=== PATIENT | female | born 1985 | race American Indian/Alaskan Native ===

== ENCOUNTER 2017-12-08 09:12 | Inpatient (IN) | payer MEDICAID, SELFPAY ==
[2017-12-06 10:04] VITALS: BMI 24.7
--- NOTE | 2017-12-08 08:41 | CP.PCM.HP ---
History of Present Illness - History of Present Illness History of Present Illness: patient here for myomectomy due to enlarged uterus and pelvic pain Present on Admission - Present on Admission Any Indicators Present on Admission: No History of DVT/PE: No History of Uncontrolled Diabetes: No Urinary Catheter: No Decubitus Ulcer Present: No Review of Systems - Hematologic/Lymphatic Additional comments: wnl Past Patient History - Past Medical History & Family History Past Medical History?: No - Past Social History Smoking Status: Never Smoked - CARDIAC Hx Cardiac Disorders: No - PULMONARY Hx Respiratory Disorders: No - NEUROLOGICAL Hx Neurological Disorder: No - HEENT Hx HEENT Problems: No - RENAL Hx Chronic Kidney Disease: No - ENDOCRINE/METABOLIC Hx Endocrine Disorders: No - HEMATOLOGICAL/ONCOLOGICAL Hx Blood Disorders: No - INTEGUMENTARY Hx Dermatological Problems: No - MUSCULOSKELETAL/RHEUMATOLOGICAL Hx Musculoskeletal Disorders: No - GASTROINTESTINAL Hx Gastrointestinal Disorders: No - GENITOURINARY/GYNECOLOGICAL Hx Genitourinary Disorders: No - PSYCHIATRIC Hx Psychophysiologic Disorder: No - SURGICAL HISTORY Hx Surgeries: Yes Other/Comment: fibroids removed--2012 - ANESTHESIA Hx Anesthesia: Yes Hx Anesthesia Reactions: No Has any member of the family had a problem w/ anesthesia?: No Meds Allergies/Adverse Reactions: Allergies Allergy/AdvReac Type Severity Reaction Status Date / Time No Known Allergies Allergy Verified 12/06/17 09:41 Physical Exam - Skin Additional comments: enlarged fibroid uterus - Additional Findings Additional findings: enlarged uteru Results - Vital Signs Recent Vital Signs: Last Vital Signs Temp 99.6 F 12/06/17 10:00 Pulse 78 12/06/17 10:00 Resp 20 12/06/17 10:00 BP 101/72 12/06/17 10:00 Pulse Ox 98 12/06/17 10:00 Assessment & Plan - Assessment and Plan (Free Text) Assessment: fibroi uterus pelvic pain Plan: admit for myomectomy - Date & Time Date: 12/08/17 Time: 08:45
[2017-12-08] MEDS ORDERED: Propofol 10 mg/ml Inj (20 ML) ONE (11:48)
[2017-12-08] MEDS ORDERED: ePHEDrine 50 mg/ml Inj ONE (11:48)
[2017-12-08] MEDS ORDERED: Midazolam 2 MG/2 ML VIAL ONE (11:48)
[2017-12-08] MEDS ORDERED: cefOXitin IV 1 gm in Dextrose 2 GM/100 ML BAG IVPB ONE (11:51)
[2017-12-08] MEDS ORDERED: Rocuronium 10 mg/ml (5 ml) ONE (11:59)
[2017-12-08] MEDS ORDERED: Esmolol 100 mg/10ml Inj IV ONE (11:59)
[2017-12-08] MEDS ORDERED: Lactated Ringer's 1,000 ML IV ONE ×2 (12:09→13:37)
[2017-12-08] MEDS ORDERED: Sodium Chloride 0.9% 1,000 ML IV ONE ×2 (12:10→17:35)
[2017-12-08] MEDS ORDERED: Morphine 1 mg/ml preservative-free Inj(Duramorph) ONE (12:34)
[2017-12-08] MEDS ORDERED: Sevoflurane - Inhalation Anesthetic Liq (250 ml) ONE (13:02)
[2017-12-08] MEDS ORDERED: Sodium Chloride 0.9% 500 ML IV ONE ×4 (13:37→14:53)
[2017-12-08] MEDS: Lactated Ringer's 1,000 ML IV ONE ×2 (14:23→21:25)
[2017-12-08] MEDS ORDERED: Lactated Ringer's 500 ML IV ONE ×2 (14:24→14:36)
[2017-12-08] MEDS ORDERED: Sodium Chloride 0.9% 250 ML IV ONE (14:24)
[2017-12-08] MEDS ORDERED: Neostigmine 1:1000 (1 mg/ml) Inj ONE (14:35)
[2017-12-08] MEDS ORDERED: Lactated Ringer's 1,000 ML IV SCH ×2 (15:45)
[2017-12-08] MEDS: HYDROmorphone 1 mg/ml ISec IVP PRN ×2 (16:17→17:15)
[2017-12-08] MEDS ORDERED: Lactated Ringer's 500 ML IV SCH (18:00)
[2017-12-08 18:21] LABS: HEMOGLOBIN 10.1 g/dL (12.0-16.0); MEAN CELL VOLUME 89.9 fl (81.0-99.0); MEAN CORPUSCULAR HEMOGLOBIN 29.3 pg (27.0-31.0); MEAN CORPUSCULAR HGB CONC 32.6 g/dL (33.0-37.0); RBC 3.45 Mil/uL (3.80-5.20); RED CELL DISTRIBUTION WIDTH 13.6 % (11.5-14.5); WHITE BLOOD COUNT 14.5 K/uL (4.8-10.8)
[2017-12-08] MEDS: cefOXitin 2 GM in Sodium Chloride 0.9% 100 ML IVPB SCH (19:45)
[2017-12-08 20:10] LABS: BASO % 0.1 % (0.0-2.0); HEMOGLOBIN 9.6 g/dL (12.0-16.0); LYMPH # 0.8 K/uL (1.0-4.3); LYMPH % 5.9 % (20.0-40.0); MEAN CELL VOLUME 90.3 fl (81.0-99.0); MEAN CORPUSCULAR HEMOGLOBIN 29.2 pg (27.0-31.0); MEAN CORPUSCULAR HGB CONC 32.4 g/dL (33.0-37.0); MEAN PLATELET VOLUME 9.6 fl (7.2-11.7); MONO # 1.1 K/uL (0.0-0.8); MONO % 8.3 % (0.0-10.0); NEUT # 11.8 K/uL (1.8-7.0); NEUT % 85.7 % (50.0-75.0); PLATELET COUNT 149 K/uL (130-400); RBC 3.29 Mil/uL (3.80-5.20); RED CELL DISTRIBUTION WIDTH 13.8 % (11.5-14.5); WHITE BLOOD COUNT 13.7 K/uL (4.8-10.8)
[2017-12-08] MEDS: Lactated Ringer's 1,000 ML IV SCH ×3 (20:55→22:56)
[2017-12-08 21:44] LABS: BANDS 4 % (0-2); LYMPHOCYTE 6 % (20-50); MONOCYTE 1 % (0-10); NEUTROPHIL 88 % (42-75); REACTIVE LYMPHOCYTES 1 % (0-0); TOTAL CELLS COUNTED 100
[2017-12-08 21:45] LABS: PLATELET ESTIMATE NORMAL (NORMAL)
[2017-12-08 21:46] LABS: ACANTHOCYTES SLIGHT
--- NOTE | 2017-12-08 22:06 | CP.PCM.CON ---
History of Present Illness - History of Present Illness History of Present Illness: CC: Hypotension This is a 31 year old female who went for myomectomy due to enlarged uterus and pelvic pain earlier today. During the patient's surgery today she had 1400 mL of estimated blood loss. In the PACU I was called for consultation due to postoperative hypovolemic hypotension as a result. The patient was found to be 83/42 despite 4 liters of IV fluids in the OR, but is now responding to fluids with a BP of 100/62. There is no baseline Hg available to me at this time; her postop Hg is 9.6. She is being admitted to ICU for close monitoring overnight due to her hypotension. Patient is refusing blood transfusion at this time. Patient is c/o pain and is requesting pain medication. She is responding appropriately to questions. Review of Systems - Review of Systems Review of Systems: A 12 point review of system was conducted and found to be negative other than what was mentioned in HPI. Past Patient History - Infectious Disease Hx of Infectious Diseases: None - Past Medical History & Family History Past Medical History?: No Past Family History: Reviewed and not pertinent - Past Social History Smoking Status: Never Smoked Alcohol: None Drugs: Denies - CARDIAC Hx Cardiac Disorders: No - PULMONARY Hx Respiratory Disorders: No - NEUROLOGICAL Hx Neurological Disorder: No - HEENT Hx HEENT Problems: No - RENAL Hx Chronic Kidney Disease: No - ENDOCRINE/METABOLIC Hx Endocrine Disorders: No - HEMATOLOGICAL/ONCOLOGICAL Hx Blood Disorders: No - INTEGUMENTARY Hx Dermatological Problems: No - MUSCULOSKELETAL/RHEUMATOLOGICAL Hx Musculoskeletal Disorders: No - GASTROINTESTINAL Hx Gastrointestinal Disorders: No - GENITOURINARY/GYNECOLOGICAL Hx Genitourinary Disorders: No - PSYCHIATRIC Hx Psychophysiologic Disorder: No Hx Emotional Abuse: No Hx Physical Abuse: No - SURGICAL HISTORY Hx Surgeries: Yes Other/Comment: fibroids removed--2012 - ANESTHESIA Hx Anesthesia: Yes Hx Anesthesia Reactions: No Hx Malignant Hyperthermia: No Has any member of the family had a problem w/ anesthesia?: No Meds Allergies/Adverse Reactions: Allergies Allergy/AdvReac Type Severity Reaction Status Date / Time No Known Allergies Allergy Verified 12/08/17 10:03 - Medications Medications: Current Medications Hydromorphone HCl (Dilaudid) 1 mg IVP Q3 PRN PRN Reason: Pain, moderate (4-7) Hydromorphone HCl (Dilaudid) 0.5 mg IVP Q3 PRN PRN Reason: Pain, Mild (1-3) Acetaminophen (Ofirmev) 100 mls @ 400 mls/hr IVPB Q6H KENDRA PRN Reason: Protocol Stop: 12/09/17 15:46 Last Admin: 12/08/17 21:59 Dose: Not Given Cefoxitin Sodium 2 gm/ Sodium (Chloride) 100 mls @ 100 mls/hr IVPB Q8 KENDRA PRN Reason: Protocol Stop: 12/09/17 01:59 Last Admin: 12/08/17 19:45 Dose: 100 mls Lactated Ringer's (Lactated Ringer's) 1,000 mls @ 999 mls/hr IV .Q1H1M [facility] Stop: 12/08/17 23:45 Last Admin: 12/08/17 20:55 Dose: 500 mls Ketorolac Tromethamine (Toradol) 15 mg IVP Q6 [facility] Stop: 12/09/17 16:01 Last Admin: 12/08/17 22:00 Dose: 15 mg Ondansetron HCl (Zofran Inj) 4 mg IVP Q4 PRN PRN Reason: Nausea/Vomiting Physical Exam - Additional Findings Additional findings: Physical exam: Constitutional- cooperative, drowsy postop but responding appropriately to questions Head- NCAT, PERRL Eye- PERRL, EOMI ENT- normal exam, MMM. Neck- normal inspection, supple, no JVD Respiratory- CTAB, no wheezes rales rhonchi Cardiovascular- RRR, +S1, +S2 no MRG GI/Abdominal- normal bowel sounds, soft, no mass, no hsm Skin- warm, dry, dressing c/d/i. Extremities Exam- normal capillary refill, normal inspection Neurological Exam- alert, awake, oriented Psych- normal mood, normal affect Results - Vital Signs Recent Vital Signs: Last Vital Signs Temp 99 F 12/08/17 21:25 Pulse 82 12/08/17 21:25 Resp 18 12/08/17 21:25 BP 105/61 12/08/17 21:25 Pulse Ox 100 12/08/17 21:25 - Labs Result Diagrams: 12/08/17 19:56 Labs: Laboratory Results - last 24 hr 12/08/17 12/08/17 12/08/17 18:01 19:56 20:30 WBC 14.5 H D 13.7 H RBC 3.45 L 3.29 L Hgb 10.1 L D 9.6 L Hct 31.0 L 29.7 L MCV 89.9 90.3 MCH 29.3 29.2 MCHC 32.6 L 32.4 L RDW 13.6 13.8 Plt Count 176 149 MPV 9.6 Neut % (Auto) 85.7 H Lymph % (Auto) 5.9 L [place] % (Auto) 8.3 Eos % (Auto) 0.0 Baso % (Auto) 0.1 Neut # (Auto) 11.8 H Lymph # (Auto) 0.8 L [place] # (Auto) 1.1 H Eos # (Auto) 0.0 Baso # (Auto) 0.0 Neutrophils % (Manual) 88 H Band Neutrophils % 4 H Lymphocytes % (Manual) 6 L Reactive Lymphs % 1 H Monocytes % (Manual) 1 Platelet Estimate Normal Acanthocytes (Spur) Slight Blood Type O POSITIVE Antibody Screen Negative Crossmatch See Detail BBK History Checked Patient has bt Assessment & Plan - Assessment and Plan (Free Text) Plan: This is a 31 year old female who went for myomectomy due to enlarged uterus and pelvic pain earlier today. During the patient's surgery today she had 1400 mL of estimated blood loss. In the PACU I was called for consultation due to postoperative hypovolemic hypotension as a result. The patient was found to be 83/42 despite 4 liters of IV fluids in the OR, but is now responding to fluids with a BP of 100/62. There is no baseline Hg available to me at this time; her postop Hg is 9.6. She is being admitted to ICU for close monitoring overnight due to her hypotension. Patient is refusing blood transfusion at this time. Patient is c/o pain and is requesting pain medication. She is responding appropriately to questions. 1) Postoperative hypotension secondary to blood loss - Admit to ICU - Continue aggressive hydration with LR - 2 more liters of LR and then will reassess, if BP continues to be stable will continue fluids at 125 cc/hour - Currently improved to 100/62 - Ofirmev and Toradol 15 mg IVP q 6 hours x 4 doses for pain control - If BP continues to be stable will advance pain medication to narcotics - Patient refusing blood products at this time - Other Postsurgical management as per primary 2) Leukocytosis, mild - reactive from surgery 3) DVT prophylaxis - SCDs
[2017-12-09] MEDS: cefOXitin 2 GM in Sodium Chloride 0.9% 100 ML IVPB SCH (03:18)
[2017-12-09] MEDS: Lactated Ringer's 1,000 ML IV SCH ×2 (08:21→14:47)
[2017-12-09 09:31] LABS: HEMOGLOBIN 8.5 g/dL (12.0-16.0); MEAN CELL VOLUME 88.7 fl (81.0-99.0); MEAN CORPUSCULAR HEMOGLOBIN 29.4 pg (27.0-31.0); MEAN CORPUSCULAR HGB CONC 33.2 g/dL (33.0-37.0); RBC 2.89 Mil/uL (3.80-5.20); RED CELL DISTRIBUTION WIDTH 13.7 % (11.5-14.5)
--- NOTE | 2017-12-09 10:17 | CP.PCM.PN ---
Subjective - Date & Time of Evaluation Date of Evaluation: 12/09/17 Time of Evaluation: 10:15 - Subjective Subjective: patient c/o incisional pain she wants to eat and walk Objective - Vital Signs/Intake and Output Vital Signs (last 24 hours): Temp Pulse Resp BP Pulse Ox 99.4 F 95 H 24 112/68 99 12/09/17 07:56 12/09/17 09:00 12/09/17 09:00 12/09/17 09:00 12/09/17 09:00 Intake and Output: 12/09/17 12/09/17 06:59 18:59 Intake Total 1450 100 Output Total 1000 Balance 450 100 - Medications Medications: Current Medications Hydromorphone HCl (Dilaudid) 1 mg IVP Q3 PRN PRN Reason: Pain, moderate (4-7) Last Admin: 12/09/17 09:34 Dose: 1 mg Hydromorphone HCl (Dilaudid) 0.5 mg IVP Q3 PRN PRN Reason: Pain, Mild (1-3) Acetaminophen (Ofirmev) 100 mls @ 400 mls/hr IVPB Q6H KENDRA PRN Reason: Protocol Stop: 12/09/17 15:46 Last Admin: 12/09/17 03:13 Dose: 400 mls/hr Lactated Ringer's (Lactated Ringer's) 1,000 mls @ 100 mls/hr IV .Q10H [facility] Last Admin: 12/09/17 08:21 Dose: 100 mls/hr Ketorolac Tromethamine (Toradol) 15 mg IVP Q6 KENDRA Stop: 12/09/17 16:01 Last Admin: 12/09/17 04:50 Dose: 15 mg Ondansetron HCl (Zofran Inj) 4 mg IVP Q4 PRN PRN Reason: Nausea/Vomiting - Labs Labs: 12/09/17 09:10
--- NOTE | 2017-12-09 10:22 | CP.PCM.PN ---
Subjective - Date & Time of Evaluation Date of Evaluation: 12/09/17 Time of Evaluation: 20:00 - Subjective Subjective: c/o incisional pain also wants to eat and walk around Objective - Vital Signs/Intake and Output Vital Signs (last 24 hours): Temp Pulse Resp BP Pulse Ox 99.4 F 95 H 24 112/68 99 12/09/17 07:56 12/09/17 09:00 12/09/17 09:00 12/09/17 09:00 12/09/17 09:00 Intake and Output: 12/09/17 12/09/17 06:59 18:59 Intake Total 1450 100 Output Total 1000 Balance 450 100 - Medications Medications: Current Medications Hydromorphone HCl (Dilaudid) 1 mg IVP Q3 PRN PRN Reason: Pain, moderate (4-7) Last Admin: 12/09/17 09:34 Dose: 1 mg Hydromorphone HCl (Dilaudid) 0.5 mg IVP Q3 PRN PRN Reason: Pain, Mild (1-3) Acetaminophen (Ofirmev) 100 mls @ 400 mls/hr IVPB Q6H KENDRA PRN Reason: Protocol Stop: 12/09/17 15:46 Last Admin: 12/09/17 03:13 Dose: 400 mls/hr Lactated Ringer's (Lactated Ringer's) 1,000 mls @ 100 mls/hr IV .Q10H [facility] Last Admin: 12/09/17 08:21 Dose: 100 mls/hr Ketorolac Tromethamine (Toradol) 15 mg IVP Q6 KENDRA Stop: 12/09/17 16:01 Last Admin: 12/09/17 04:50 Dose: 15 mg Ondansetron HCl (Zofran Inj) 4 mg IVP Q4 PRN PRN Reason: Nausea/Vomiting - Labs Labs: 12/09/17 09:10 - Eye Exam Additional comments: v.s stable afebrile incision clean and healing Assessment and Plan - Assessment and Plan (Free Text) Assessment: s/p myomectomy heavy blood loss Plan: continue present caredc dino arroyo with assistance increase diet as tolerated
--- NOTE | 2017-12-09 10:48 | CP.PCM.CON ---
History of Present Illness - History of Present Illness History of Present Illness: This is a 31 yrs old female who had a myomectomy for severe anemia due to abnormal uterine bleeding. Pt's Hgb was 10.4 when she came in. She had a myomectomy and several large fibroids were removed, Her Hgb post op has dropped to 8.5 gms and she was also very hypotensive,. She is better today but still feels weak. Past Patient History - Infectious Disease Hx of Infectious Diseases: None - Past Medical History & Family History Past Medical History?: No - Past Social History Smoking Status: Never Smoked - CARDIAC Hx Cardiac Disorders: No - PULMONARY Hx Respiratory Disorders: No - NEUROLOGICAL Hx Neurological Disorder: No - HEENT Hx HEENT Problems: No - RENAL Hx Chronic Kidney Disease: No - ENDOCRINE/METABOLIC Hx Endocrine Disorders: No - HEMATOLOGICAL/ONCOLOGICAL Hx Blood Disorders: No - INTEGUMENTARY Hx Dermatological Problems: No - MUSCULOSKELETAL/RHEUMATOLOGICAL Hx Falls: No - GASTROINTESTINAL Hx Gastrointestinal Disorders: No - GENITOURINARY/GYNECOLOGICAL Hx Genitourinary Disorders: No - PSYCHIATRIC Hx Substance Use: No - SURGICAL HISTORY Hx Surgeries: Yes Other/Comment: fibroids removed--2012 - ANESTHESIA Hx Anesthesia: Yes Hx Anesthesia Reactions: No Hx Malignant Hyperthermia: No Has any member of the family had a problem w/ anesthesia?: No Meds Allergies/Adverse Reactions: Allergies Allergy/AdvReac Type Severity Reaction Status Date / Time No Known Allergies Allergy Verified 12/08/17 10:03 - Medications Medications: Current Medications Hydromorphone HCl (Dilaudid) 1 mg IVP Q3 PRN PRN Reason: Pain, moderate (4-7) Last Admin: 12/09/17 09:34 Dose: 1 mg Hydromorphone HCl (Dilaudid) 0.5 mg IVP Q3 PRN PRN Reason: Pain, Mild (1-3) Acetaminophen (Ofirmev) 100 mls @ 400 mls/hr IVPB Q6H KENDRA PRN Reason: Protocol Stop: 12/09/17 15:46 Last Admin: 12/09/17 03:13 Dose: 400 mls/hr Lactated Ringer's (Lactated Ringer's) 1,000 mls @ 100 mls/hr IV .Q10H KENDRA Last Admin: 12/09/17 08:21 Dose: 100 mls/hr Ketorolac Tromethamine (Toradol) 15 mg IVP Q6 PRN PRN Reason: pain level 3-6 Ondansetron HCl (Zofran Inj) 4 mg IVP Q4 PRN PRN Reason: Nausea/Vomiting Physical Exam - Additional Findings Additional findings: Physical exam; Alert,well oriented in no acute distress.BP 105/60,hr 88/min neck; Supple, no adenopathy Chest; clear, no rales or rhonchi Heart; RSR, no murmur Abd; soft, no mass, no h/s megaly. Some tenderness in the lower part of the abdomen. Results - Vital Signs Recent Vital Signs: Last Vital Signs Temp 99.4 F 12/09/17 07:56 Pulse 78 12/09/17 10:00 Resp 16 12/09/17 10:00 BP 103/58 L 12/09/17 10:00 Pulse Ox 100 12/09/17 10:00 - Labs Result Diagrams: 12/09/17 09:10 Labs: Laboratory Results - last 24 hr 12/08/17 12/08/17 12/08/17 18:01 19:56 20:30 WBC 14.5 H D 13.7 H RBC 3.45 L 3.29 L Hgb 10.1 L D 9.6 L Hct 31.0 L 29.7 L MCV 89.9 90.3 MCH 29.3 29.2 MCHC 32.6 L 32.4 L RDW 13.6 13.8 Plt Count 176 149 MPV 9.6 Neut % (Auto) 85.7 H Lymph % (Auto) 5.9 L [place] % (Auto) 8.3 Eos % (Auto) 0.0 Baso % (Auto) 0.1 Neut # (Auto) 11.8 H Lymph # (Auto) 0.8 L [place] # (Auto) 1.1 H Eos # (Auto) 0.0 Baso # (Auto) 0.0 Neutrophils % (Manual) 88 H Band Neutrophils % 4 H Lymphocytes % (Manual) 6 L Reactive Lymphs % 1 H Monocytes % (Manual) 1 Platelet Estimate Normal Acanthocytes (Spur) Slight Blood Type O POSITIVE Antibody Screen Negative Crossmatch See Detail BBK History Checked Patient has bt 12/09/17 09:10 WBC 8.0 RBC 2.89 L Hgb 8.5 L Hct 25.7 L MCV 88.7 MCH 29.4 MCHC 33.2 RDW 13.7 Plt Count 122 L D MPV Neut % (Auto) Lymph % (Auto) [place] % (Auto) Eos % (Auto) Baso % (Auto) Neut # (Auto) Lymph # (Auto) [place] # (Auto) Eos # (Auto) Baso # (Auto) Neutrophils % (Manual) Band Neutrophils % Lymphocytes % (Manual) Reactive Lymphs % Monocytes % (Manual) Platelet Estimate Acanthocytes (Spur) Blood Type Antibody Screen Crossmatch BBK History Checked Assessment & Plan - Assessment and Plan (Free Text) Assessment: impression; Iron deficiency anemia secondary to abnormal uterine bleeding., Post op Plan: Plan; Will give her 2 days of iv iron, 6then she can continue po, - Date & Time Date: 12/09/17 Time: 10:56
[2017-12-10] MEDS: Lactated Ringer's 1,000 ML IV SCH (00:12)
[2017-12-10] MEDS ORDERED: Oxycodone/Acetaminophen 5/325 mg Tab PO ONE (09:58)
--- NOTE | 2017-12-10 11:43 | CP.PCM.PN ---
Subjective - Date & Time of Evaluation Date of Evaluation: 12/10/17 Time of Evaluation: 11:41 - Subjective Subjective: Feels better Denies SOB, chest or leg pains Voiding well and had small BM Denies n/V Objective - Vital Signs/Intake and Output Vital Signs (last 24 hours): Temp Pulse Resp BP Pulse Ox 99.2 F 85 18 116/68 100 12/10/17 08:30 12/10/17 08:30 12/10/17 08:30 12/10/17 08:30 12/10/17 08:30 Intake and Output: 12/10/17 12/10/17 06:59 18:59 Intake Total 1700 Balance 1700 - Medications Medications: Current Medications Hydromorphone HCl (Dilaudid) 1 mg IVP Q3 PRN PRN Reason: Pain, moderate (4-7) Last Admin: 12/09/17 19:33 Dose: 1 mg Hydromorphone HCl (Dilaudid) 0.5 mg IVP Q3 PRN PRN Reason: Pain, Mild (1-3) Last Admin: 12/10/17 05:26 Dose: 0.5 mg Lactated Ringer's (Lactated Ringer's) 1,000 mls @ 100 mls/hr IV .Q10H [facility] Last Admin: 12/10/17 00:12 Dose: 100 mls/hr Iron Sucrose 200 mg/ Sodium (Chloride) 110 mls @ 110 mls/hr IVPB DAILY KENDRA Last Admin: 12/10/17 08:52 Dose: 110 mls/hr Ketorolac Tromethamine (Toradol) 15 mg IVP Q6 PRN PRN Reason: pain level 3-6 Last Admin: 12/10/17 00:03 Dose: 15 mg Ondansetron HCl (Zofran Inj) 4 mg IVP Q4 PRN PRN Reason: Nausea/Vomiting - Labs Labs: 12/09/17 09:10 - Constitutional Appears: No Acute Distress - Head Exam Head Exam: ATRAUMATIC - Neck Exam Neck Exam: Full ROM - Respiratory Exam Respiratory Exam: NORMAL BREATHING PATTERN - GI/Abdominal Exam GI & Abdominal Exam: Soft Additional comments: not distended but some generalized tenderness Dressing intact removed lindy in place no suppt or discharge No sign of infection - Extremities Exam Additional comments: no leg edema or calf tenderness - Neurological Exam Neurological Exam: Alert, Awake, Oriented x3 Assessment and Plan - Assessment and Plan (Free Text) Assessment: anemia and low grade temp x3 yesterday Plan: Start on po iron since had two doses of IV iron and increase po fluids and OOB ( temp 99.2 this am but 3 episodes of 100.6 yesterday)
[2017-12-10] MEDS: Oxycodone/Acetaminophen 5/325 mg Tab PO PRN ×3 (14:22→23:17)
[2017-12-11 08:42] VITALS: BP 97/50; PULSE 85; RESP 18; TEMP 99.4; O2SAT 98
--- NOTE | 2017-12-11 09:10 | CP.PCM.DIS ---
Provider - Provider Date of Admission: 12/08/17 15:44 Attending physician: Daneil Espitia MD Primary care physician: NO FAMILY PROVIDER Time Spent in preparation of Discharge (in minutes): 25 Hospital Course - Lab Results Lab Results: Micro Results 12/08/17 08:40 Naris MRSA Culture (Admit) - Final MRSA NOT DETECTED Most Recent Lab Values WBC 8.0 K/uL (4.8-10.8) 12/09/17 09:10 RBC 2.89 Mil/uL (3.80-5.20) L 12/09/17 09:10 Hgb 8.5 g/dL (12.0-16.0) L 12/09/17 09:10 Hct 25.7 % (34.0-47.0) L 12/09/17 09:10 MCV 88.7 fl (81.0-99.0) 12/09/17 09:10 MCH 29.4 pg (27.0-31.0) 12/09/17 09:10 MCHC 33.2 g/dL (33.0-37.0) 12/09/17 09:10 RDW 13.7 % (11.5-14.5) 12/09/17 09:10 Plt Count 122 K/uL (130-400) L D 12/09/17 09:10 MPV 9.6 fl (7.2-11.7) 12/08/17 19:56 Neut % (Auto) 85.7 % (50.0-75.0) H 12/08/17 19:56 Lymph % (Auto) 5.9 % (20.0-40.0) L 12/08/17 19:56 [place] % (Auto) 8.3 % (0.0-10.0) 12/08/17 19:56 Eos % (Auto) 0.0 % (0.0-4.0) 12/08/17 19:56 Baso % (Auto) 0.1 % (0.0-2.0) 12/08/17 19:56 Neut # (Auto) 11.8 K/uL (1.8-7.0) H 12/08/17 19:56 Lymph # (Auto) 0.8 K/uL (1.0-4.3) L 12/08/17 19:56 [place] # (Auto) 1.1 K/uL (0.0-0.8) H 12/08/17 19:56 Eos # (Auto) 0.0 K/uL (0.0-0.7) 12/08/17 19:56 Baso # (Auto) 0.0 K/uL (0.0-0.2) 12/08/17 19:56 Neutrophils % (Manual) 88 % (42-75) H 12/08/17 19:56 Band Neutrophils % 4 % (0-2) H 12/08/17 19:56 Lymphocytes % (Manual) 6 % (20-50) L 12/08/17 19:56 Reactive Lymphs % 1 % (0-0) H 12/08/17 19:56 Monocytes % (Manual) 1 % (0-10) 12/08/17 19:56 Platelet Estimate Normal (NORMAL) 12/08/17 19:56 Acanthocytes (Spur) Slight 12/08/17 19:56 Blood Type O POSITIVE 12/08/17 20:30 Antibody Screen Negative 12/08/17 20:30 Crossmatch See Detail 12/08/17 20:30 BBK History Checked Patient has bt 12/08/17 20:30 Discharge Exam - Head Exam Head Exam: ATRAUMATIC Discharge Plan - Follow Up Plan Condition: GOOD Disposition: HOME/ ROUTINE Instructions: Managing Pain After Surgery Additional Instructions: No heavy lifting or strenuous exercise. No tub bath/douching/tampons/sex until instructed by MD. You may shower. Pat staple line dry or air dry. Do Not rub surgical site. For pain you may take motrin 800mg every 8 hours with food. OTC Iron supplement once a day. Call Dr Clarke for follow up appt next week or for any other medical concerns. Referrals: FAMILY PROVIDER,NO [Primary Care Provider] -
--- NOTE | 2017-12-11 09:13 | CP.PCM.DIS ---
Provider - Provider Date of Admission: 12/08/17 15:44 Attending physician: Daniel Espitia MD Primary care physician: NO FAMILY PROVIDER Time Spent in preparation of Discharge (in minutes): 25 Hospital Course - Lab Results Lab Results: Micro Results 12/08/17 08:40 Naris MRSA Culture (Admit) - Final MRSA NOT DETECTED Most Recent Lab Values WBC 8.0 K/uL (4.8-10.8) 12/09/17 09:10 RBC 2.89 Mil/uL (3.80-5.20) L 12/09/17 09:10 Hgb 8.5 g/dL (12.0-16.0) L 12/09/17 09:10 Hct 25.7 % (34.0-47.0) L 12/09/17 09:10 MCV 88.7 fl (81.0-99.0) 12/09/17 09:10 MCH 29.4 pg (27.0-31.0) 12/09/17 09:10 MCHC 33.2 g/dL (33.0-37.0) 12/09/17 09:10 RDW 13.7 % (11.5-14.5) 12/09/17 09:10 Plt Count 122 K/uL (130-400) L D 12/09/17 09:10 MPV 9.6 fl (7.2-11.7) 12/08/17 19:56 Neut % (Auto) 85.7 % (50.0-75.0) H 12/08/17 19:56 Lymph % (Auto) 5.9 % (20.0-40.0) L 12/08/17 19:56 [place] % (Auto) 8.3 % (0.0-10.0) 12/08/17 19:56 Eos % (Auto) 0.0 % (0.0-4.0) 12/08/17 19:56 Baso % (Auto) 0.1 % (0.0-2.0) 12/08/17 19:56 Neut # (Auto) 11.8 K/uL (1.8-7.0) H 12/08/17 19:56 Lymph # (Auto) 0.8 K/uL (1.0-4.3) L 12/08/17 19:56 [place] # (Auto) 1.1 K/uL (0.0-0.8) H 12/08/17 19:56 Eos # (Auto) 0.0 K/uL (0.0-0.7) 12/08/17 19:56 Baso # (Auto) 0.0 K/uL (0.0-0.2) 12/08/17 19:56 Neutrophils % (Manual) 88 % (42-75) H 12/08/17 19:56 Band Neutrophils % 4 % (0-2) H 12/08/17 19:56 Lymphocytes % (Manual) 6 % (20-50) L 12/08/17 19:56 Reactive Lymphs % 1 % (0-0) H 12/08/17 19:56 Monocytes % (Manual) 1 % (0-10) 12/08/17 19:56 Platelet Estimate Normal (NORMAL) 12/08/17 19:56 Acanthocytes (Spur) Slight 12/08/17 19:56 Blood Type O POSITIVE 12/08/17 20:30 Antibody Screen Negative 12/08/17 20:30 Crossmatch See Detail 12/08/17 20:30 BBK History Checked Patient has bt 12/08/17 20:30 - Hospital Course Hospital Course: uneventful without complication Discharge Exam - Head Exam Head Exam: ATRAUMATIC - Additional Findings Additional findings: stable no bleeding or pain Discharge Plan - Follow Up Plan Condition: GOOD Disposition: HOME/ ROUTINE Patient education suggested?: Yes Referrals: FAMILY PROVIDER,NO [Primary Care Provider] -
--- NOTE | 2017-12-18 21:18 | OP ---
Copied To: Daniel Espitia MD Attending MD: Daniel Espitia MD PROCEDURE DATE: 12/08/2017 PREOPERATIVE DIAGNOSES: Fibroid uterus and pelvic pain. POSTOPERATIVE DIAGNOSES: Fibroid uterus and pelvic pain, pending pathology. SURGEON: Daniel Espitia MD COSMETICS COUNTER MANAGER: Mariano Basurto MD TYPE OF ANESTHESIA: General anesthesia. ANESTHESIA ADMINISTERED BY: Annita Dutta MD PROCEDURE: Multiple myomectomy. FINDINGS: Very enlarged uterus with multiple fibroids. DESCRIPTION OF PROCEDURE: With the patient in the supine position and under general anesthesia, the patient was prepped and draped in the usual sterile manner. A Pfannenstiel incision was made and taken down to the fascia in layers. The fascia was incised and extended bilaterally. Dr. Basurto was assisting each step of the way and assisted in preparation of the surgery. After the fascia was incised and extended bilaterally, the muscle was from the fascia by sharp dissection and blunt dissection. After this was done, peritoneum was grasped and incised vertically. Upon entering the abdominopelvic cavity, the bowel was pushed away. Following this, fibroids were identified. The uterus was exteriorized and the fibroids were removed sequentially from posterior to lateral to anteriorly. There were several uterine fibroids, which were removed in sequentially. The incisions were closed with 1 Vicryl, maintaining hemostasis. After hopefully the removal of the fibroids were completed, the patient received about 250 mL back of blood which was from the . The pelvic cavity was irrigated until clean. After this was done and maintaining hemostasis, Surgicel and Interceed were placed on the incision site to prevent adhesions and any bleeding. After this was done, the peritoneum was grasped and closed with 1 Vicryl. The muscle was approximated with 1 Vicryl. The fascia was closed with running interlocking stitch starting at each end and finishing in the midline. Dr. Basurto is doing his half and I am doing my half. After this was done, the subcutaneous layer was closed with 2-0 plain, and the skin was closed with lindy. Dr. Basurto was present from the beginning of the surgery to the end of the procedure. The patient tolerated the procedure well and was in satisfactory condition on the way to recovery room. Daniel MD Nupur [facility] # [id number]
--- NOTE | 2017-12-19 08:52 | CON ---
Copied To: Ezra Wolf MD Attending MD: Dr. Daniel Espitia I was called into the room by Dr. Daniel Espitia to evaluate. 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 Upon visually examining the procedure, I elected to scrub through multiple adhesions, which were lysed from the uterus to the small bowel. These were carefully lysed using sharp dissection. Upon finishing the lysis of adhesions, there were no injury to the small bowel or to the neighboring organs. Dr. Espitia and Sb continued the procedure. Ezra Wolf MD
== END 2017-12-11 10:21 | disposition home or self-care (01) | DRG 358 ==
LOC: H.OPSURG 09:12 → H.ICU/CCU 15:44 → H.PEDS 12-09 14:04
PROVIDERS: ADMIT Specialist; ATTEND Specialist
PROC: 0UB90ZZ Excision of Uterus, Open Approach (ICD-10-PCS; principal; 2017-12-08 11:00)
DX: D25.9 Leiomyoma of uterus, unspecified (principal); D50.0 Iron deficiency anemia secondary to blood loss (chronic); E86.1 Hypovolemia; K66.0 Peritoneal adhesions (postprocedural) (postinfection); I95.81 Postprocedural hypotension; D72.828 Other elevated white blood cell count; R10.2 Pelvic and perineal pain